=== PATIENT | female | born 1990 ===

== ENCOUNTER → 2022-07-18 | Outpatient (CLI) | LOC: M SOG 07:54 | PROVIDERS: ATTEND Physician Assistant | DX: S82.391A Other fracture of lower end of right tibia, initial encounter for closed fracture (principal); S82.421A Displaced transverse fracture of shaft of right fibula, initial encounter for closed fracture; X58.XXXA Exposure to other specified factors, initial encounter; Y92.9 Unspecified place or not applicable; Y93.9 Activity, unspecified; Y99.9 Unspecified external cause status ==

== ENCOUNTER → 2022-08-01 | Outpatient (CLI) | LOC: M SOG 09:29 | PROVIDERS: ATTEND Physician Assistant | DX: S82.401D Unspecified fracture of shaft of right fibula, subsequent encounter for closed fracture with routine healing (principal); S82.201D Unspecified fracture of shaft of right tibia, subsequent encounter for closed fracture with routine healing ==

== ENCOUNTER → 2022-08-30 | Outpatient (CLI) | LOC: M SOG 09:21 | PROVIDERS: ATTEND Physician Assistant | DX: S82.201D Unspecified fracture of shaft of right tibia, subsequent encounter for closed fracture with routine healing (principal); W18.30XD Fall on same level, unspecified, subsequent encounter ==

== ENCOUNTER → 2022-10-01 | Outpatient (CLI) | LOC: M SOG 14:34 | PROVIDERS: ATTEND Physician Assistant | DX: S82.201D Unspecified fracture of shaft of right tibia, subsequent encounter for closed fracture with routine healing (principal); Y93.9 Activity, unspecified; Y92.9 Unspecified place or not applicable ==